=== PATIENT | female | born 1950 | race Caucasian/White ===

== ENCOUNTER 2016-10-02 09:58 | Emergency (ER) | payer MEDICARE, OTHER ==
[~2016-10-02] VITALS: Ht 167.6 cm; Wt 73.9 kg
[~2016-10-02 09:58] MED LIST: VITAMIN D2000 UNIT PO
== END 2016-10-02 11:31 | disposition home or self-care (01) ==
LOC: ED 09:58
DX: S60.222A Contusion of left hand, initial encounter (principal); Z88.0 Allergy status to penicillin; Z79.899 Other long term (current) drug therapy; W01.0XXA Fall on same level from slipping, tripping and stumbling without subsequent striking against object, initial encounter
CPT/HCPCS: 73110; 73130; 99283